=== PATIENT | female | born 1995 | race Caucasian/White ===

== ENCOUNTER 2024-09-07 16:48 | Emergency (ER) | payer OTHER ==
[~2024-09-07] VITALS: Ht 160 cm; Wt 81.8 kg
[2024-09-07 16:50] VITALS: BP 129/72; PULSE 87; RESP 18; TEMP 97.7; O2SAT 99
[2024-09-07] MEDS ORDERED: HYDR59LO7 TP (19:11)
[2024-09-07] MEDS ORDERED: IBUP-1554 PO (19:11)
[2024-09-07] MEDS ORDERED: DIPH50CA37 PO (19:11)
[2024-09-07] MEDS ORDERED: CEPH-558 PO (19:11)
[2024-09-07] MEDS ORDERED: ACET-2080 PO (19:11)
[2024-09-07] MEDS ORDERED: PRED-554 PO (19:11)
== END 2024-09-07 19:26 | disposition home or self-care (01) ==
LOC: EMS 16:56
DX: L25.9 Unspecified contact dermatitis, unspecified cause (principal); Z79.52 Long term (current) use of systemic steroids
CPT/HCPCS: 99283; Z7502